=== PATIENT | female | born 1990 | race Caucasian/White ===

== ENCOUNTER → 2017-12-16 | Outpatient (CLI) | payer OTHER ==
[2017-12-16 09:46] LABS: BASO % 0.4 %; BASO ABS # 0.02 K/uL (0-0.2); EOS % 3.2 %; EOS ABS # 0.16 K/uL (0-0.5); HEMATOCRIT 41.2 % (37-47); HEMOGLOBIN 13.7 g/dL (12.0-16.0); IG# 0.01 K/uL (0.00-0.02); LYMPH % 28.7 %; LYMPH ABS # 1.44 K/uL (1.2-3.4); MEAN CELL VOLUME 90.7 fL (80-100); MEAN CORPUSCULAR HEMOGLOBIN 30.2 pg (25-34); MEAN CORPUSCULAR HGB CONC 33.3 g/dl (32-36); MEAN PLATELET VOLUME 9.7 fL (7.4-10.4); MONO ABS # 0.35 K/uL (0.11-0.59); NEUT % 60.5 %; NEUT ABS # 3.03 K/uL (1.4-6.5); PLATELET COUNT 231 K/uL (130-400); RED CELL DISTRIBUTION WIDTH CV 12.6 % (11.5-14.5); RED CELL DISTRIBUTION WIDTH SD 41.7 fL (36.4-46.3); WHITE BLOOD COUNT 5.01 K/uL (4.8-10.8)
[2017-12-16 10:14] LABS: CORTISOL AM*DRAW BETWEEN 7-9AM 19.3 mcg/dl (4.30-22.40); T3 FREE 2.53 pg/ml (2.30-4.20)
[2017-12-16 10:19] LABS: ALBUMIN 4.3 gm/dl (3.4-5.0); ALT/SGPT 20 U/L (12-78); AST/SGOT 19 U/L (15-37); BLOOD UREA NITROGEN 17 mg/dl (7-18); CARBON DIOXIDE 25 mmol/L (21-32); CHOLESTEROL 164 mg/dl (0-200); CREATININE 0.66 mg/dl (0.60-1.20); GLUCOSE 63 mg/dl (70-99); POTASSIUM 3.8 mmol/L (3.5-5.1); SODIUM 137 mmol/L (136-145)
[2017-12-16 10:23] LABS: ALKALINE PHOSPHATASE 87 U/L (45-117); LDL CHOLESTEROL CALCULATED 93 mg/dl; TOTAL PROTEIN 7.4 gm/dl (6.4-8.2)
== END | disposition home or self-care (01) ==
LOC: C.LAB 07:39
PROVIDERS: ATTEND Family Medicine
DX: N94.6 Dysmenorrhea, unspecified (principal); Z91.018 Allergy to other foods; N60.19 Diffuse cystic mastopathy of unspecified breast; E34.9 Endocrine disorder, unspecified; K58.0 Irritable bowel syndrome with diarrhea; L70.9 Acne, unspecified; B37.82 Candidal enteritis; R53.83 Other fatigue; E53.9 Vitamin B deficiency, unspecified; J30.5 Allergic rhinitis due to food; N76.0 Acute vaginitis

== ENCOUNTER → 2018-01-02 | Outpatient (CLI) | payer OTHER | END | disposition home or self-care (01) | LOC: C.LAB 09:03 | PROVIDERS: ATTEND Family Medicine | DX: R53.83 Other fatigue (principal); R53.81 Other malaise; E53.9 Vitamin B deficiency, unspecified ==